=== PATIENT | male | born 1990 | race Asian ===

== ENCOUNTER 2018-01-11 00:06 | Emergency (ER) | payer OTHER ==
[~2018-01-11] VITALS: Ht 165.1 cm; Wt 63.5 kg
[2018-01-11 00:06] VITALS: BP_SYST 140
--- NOTE | 2018-01-11 00:06 | NUR ---
Pt placed to ER bed 08. Pt c/o left upper molar pain that radiates up left face to head x 1 day. Pt s/p filling to left upper molar x 3 weeks ago and has been sensitive since. Denies drainage.
[2018-01-11] MEDS ORDERED: AMOXICILLIN 500 MG CAPSULE PO ONE (00:30)
[2018-01-11] MEDS ORDERED: ACETAMINOPHEN/CODEINE 300 MG-30 MG TABLET PO ONE (00:30)
--- NOTE | 2018-01-11 00:30 | NUR ---
Dr. Mccall at bedside.
--- NOTE | 2018-01-11 01:10 | NUR ---
Patient given written and verbal discharge instructions and verbalizes understanding. ER MD discussed with patient the results and treatment provided. Patient in stable condition. ID arm band removed. Rx of Tramadol, Motrin, and Amoxicillin given. Patient educated on pain management and to follow up with PMD. Pain Scale 0. Opportunity for questions provided and answered. Medication side effect fact sheet provided.
[2018-01-11 01:12] VITALS: BP_SYST 140
== END 2018-01-11 01:10 | disposition home or self-care (01) ==
LOC: SED 00:06
DX: K04.7 Periapical abscess without sinus (principal)
CPT/HCPCS: 99283

== ENCOUNTER 2018-07-27 22:47 | Emergency (ER) | payer OTHER ==
[~2018-07-27] VITALS: Ht 165.1 cm; Wt 63.5 kg
[2018-07-27 23:20] VITALS: BP_SYST 134
[2018-07-27] MEDS ORDERED: NACL 0.9% 1,000 ML IV ONE (23:35)
[2018-07-27] MEDS ORDERED: ONDANSETRON HCL 4 MG/2 ML VIAL IVP ONE (23:45)
[2018-07-27] MEDS ORDERED: KETOROLAC TROMETHAMINE 30 MG VIAL IVP ONE (23:45)
[2018-07-27 23:56] LABS: BASOPHILS % (AUTO) 0.4 % (0.0-2.0); EOSINOPHILS % (AUTO) 1.2 % (0.0-4.0); HEMATOCRIT 46.6 % (36-54); HEMOGLOBIN 15.6 g/dL (14.0-18.0); LYMPHOCYTES # (AUTO) 0.8 K/uL (1.0-5.5); LYMPHOCYTES % (AUTO) 20.7 % (20.5-51.5); MEAN CORPUSCULAR HEMOGLOBIN 30 pg (27-31); MEAN CORPUSCULAR HGB CONC 34 % (32-36); MEAN CORPUSCULAR VOLUME 89 fL (79.0-98.0); MONOCYTES # (AUTO) 0.4 K/uL (0.0-1.0); MONOCYTES % (AUTO) 9.3 % (1.7-9.3); NEUTROPHILS # (AUTO) 2.7 K/uL (1.8-7.7); NEUTROPHILS % (AUTO) 68.4 % (40.0-70.0); PLATELET COUNT (AUTO) 178 K/uL (130-430); RED BLOOD CELL COUNT(AUTO) 5.26 MIL/uL (4.2-6.2); RED CELL DISTRIBUTION WIDTH 13.1 % (9.0-15.0); WHITE BLOOD COUNT (AUTO) 3.9 K/uL (4.8-10.8)
[2018-07-28 00:10] LABS: CALCIUM 8.6 mg/dL (8.4-11.0); CREATININE 0.9 mg/dL (0.55-1.30); POTASSIUM 3.6 mmol/L (3.5-5.1)
[2018-07-28 00:16] LABS: ALBUMIN 3.5 g/dL (3.4-4.8); TOTAL BILIRUBIN 0.6 mg/dL (0.0-1.0)
[2018-07-28 01:00] VITALS: BP_SYST 120
== END 2018-07-28 01:00 | disposition home or self-care (01) ==
LOC: SED 22:47
DX: K29.70 Gastritis, unspecified, without bleeding (principal)
CPT/HCPCS: 36415; 76700; 80053; 83690; 85025; 96361; 96374; 96375; 99284; J1885; J2405; J7030

== ENCOUNTER 2019-12-12 22:30 | Emergency (ER) | payer OTHER ==
[~2019-12-12] VITALS: Ht 165.1 cm; Wt 62.6 kg
[2019-12-12 22:35] VITALS: BP_SYST 134
--- NOTE | 2019-12-12 22:48 | NUR ---
Patient to ER bed 6 to gown for evaluation. Side rails up. Report given to MAGDA MEANS.
--- NOTE | 2019-12-12 22:50 | NUR ---
PT CAME FROM HOME WITH C/O LEFT ANKLE PAIN. REPORTS FALLING OFF OF HIS SKATEBOARD 30 MIN PRIOR TO ARRIVAL. DENIES HITTING HEAD OR KO. AAOX4, V/S STABLE
--- NOTE | 2019-12-12 22:54 | NUR ---
ER DR. KEVIN AT THE BEDSIDE EVALUATING PT
--- NOTE | 2019-12-12 23:08 | NUR ---
PORTABLE X-RAY AT THE BEDSIDE
[2019-12-12] MEDS ORDERED: IBUPROFEN 800 MG TABLET PO ONE (23:15)
--- NOTE | 2019-12-12 23:16 | NUR ---
PT MEDICATED WITH MOTRIN 800MG PO PER MD ORDER.
--- NOTE | 2019-12-12 23:30 | NUR ---
Patient given written and verbal discharge instructions and verbalizes understanding. ER MD discussed with patient the results and treatment provided. Patient in stable condition. ID arm band removed. Rx of MOTRIN given. Patient educated on pain management and to follow up with PMD. Pain Scale 2/10. Opportunity for questions provided and answered. Medication side effect fact sheet provided.
[2019-12-12 23:36] VITALS: BP_SYST 126
== END 2019-12-12 23:30 | disposition home or self-care (01) ==
LOC: SED 22:30
DX: S93.492A Sprain of other ligament of left ankle, initial encounter (principal); R03.0 Elevated blood-pressure reading, without diagnosis of hypertension; W18.39XA Other fall on same level, initial encounter; Y93.51 Activity, roller skating (inline) and skateboarding; Y92.89 Other specified places as the place of occurrence of the external cause; Y99.8 Other external cause status
CPT/HCPCS: 99283